=== PATIENT | male | born 1985 | race Hispanic/Latino ===

== ENCOUNTER 2024-01-16 20:41 | Emergency (ER) | payer BC, SELFPAY ==
[2024-01-16 20:42] VITALS: BP 184/100
--- NOTE | 2024-01-16 21:57 | ED.GENMED ---
History of Present Illness
General
Chief Complaint: Swelling
Source: patient
Exam Limitations: none
Time Seen by Provider: 01/16/24 21:36
History of Present Illness
History of Present Illness:
This is a 39 year old male that comes in with c/o bilateral leg swelling. States that this started about a month ago but recently he scrapped a scab and the liquid was clear that come out. States that his leg kept oozing. states that his right leg
is more swollen then the left. Denies any fever, chills, chest pain, SOB, abd pain, nausea, vomiting, diarrhea, headache, dizziness, urinary burning.
Past History
Past History
ED Past Medical History: GERD and Other (migraines, )
ED Past Surgical History: Appendectomy and Orthopedic (left leg)
Social History
Tobacco: Non-smoker
Alcohol: Occasional
Personal:
Living: with family
Employment: Employed
Review of Systems
Review of Systems
All Other Systems: ROS reviewed and negative except as documented in HPI and ROS
Constitutional: Reports no symptoms; Denies fever or chills
EENT: Reports no symptoms
Respiratory: Reports no symptoms; Denies cough or trouble breathing
Cardiac: Reports no symptoms; Denies chest pain
ABD/GI: Reports no symptoms; Denies abdominal pain, nausea, vomiting or diarrhea
: Reports no symptoms; Denies dysuria, frequency or urgency
Musculoskeletal: Reports no symptoms
Skin: Reports no symptoms
Neurological: Reports no symptoms; Denies dizzy or headache
Psychiatric: Reports no symptoms
Phy Exam
General Physical Exam
General Presentation: well appearing and no apparent distress
General age: appears stated age
General Skin: warm and dry
General Habitus: obese
General Mental: alert
General Hydration: appears well hydrated
ENT Exam
ENT Exam: TM's normal, pharynx normal and neck supple
Eye Exam
Eye Exam: EOMI
Cardiovascular Exam
Cardiovascular Exam: regular rate/rhythm and normal peripheral pulses
Pulmonary Exam
Pulmonary Exam: lungs clear, no respiratory distress, no rales, chest non tender, no crackles, no rhonchi, no wheezing and no cough
Gastrointestinal Exam
Gastrointestinal Exam: normal bowel sounds, non tender, soft, no organomegaly, no pulsatile mass, non distended and other (Obese)
Musculoskeletal Exam
Musculoskeletal Exam: full ROM and edema (Nonpitting lower leg edema)
Skin Exam
Skin Exam: normal color, warm/dry, no rash and no petechia
Psychiatric Exam
Psychiatric Exam: normal mood/affect
Course
Orders/Labs/Results
Orders:
Orders
01/16/24 21:46
CR Chest - 2 Views Urgent
Comment:
Reason For Exam: sob
Legs, Bilateral US [US Periph Venous LOWER Ext Jorge] Urgent
Comment:
Reason For Exam: sWELLING
01/16/24 21:56
CMP [Comprehensive Metabolic Panel] Urgent
Complete Blood Count/With Diff Urgent
NT-proBNP Urgent
Troponin I Urgent
Abnormal Lab Results
01/16/24
21:56
Glucose 143 H mg/dl
(70-99)
ALT 72 H U/L
(0-50)
01/16/24 21:56
01/16/24 21:56
Hyperglycemia, ALT elevation. Troponin <0.012, Pro-BNP <20.0
Vital Signs
Initial and Last Documented VS:
Initial Vital Signs
Temp Pulse Resp BP Pulse Ox
98 F 94 26 184/100 98
01/16/24 20:42 01/16/24 20:42 01/16/24 20:42 01/16/24 20:42 01/16/24 20:42
Last Documented Vital Signs
Temp Pulse Resp BP Pulse Ox
98 F 94 26 184/100 98
01/16/24 20:42 01/16/24 20:42 01/16/24 20:42 01/16/24 20:42 01/16/24 21:39
MDM/Problems Addressed
Differential Diagnosis Includes:
DVT, Dependent edema
MDM/Problems Addressed:
This is a 39 year old male that comes in with c/o bilateral leg swelling. states that the right is worse then then left and that this started about a month ago. However, he scratched a scab off and it drained liquid.
Will check labs and get US bilateral legs.
Back into see patient. Explained that his Ultrasound is negative for DVT in both legs. Will have patient follow up with the Family doctor for repeat labs as his blood sugar is elevated and he needs a fasting blood sugar to r/o Diabetes. Patient can
use Compression socks to help with the swelling. Patient to return with any concerns.
Chronic conditions affecting care:
NA
Acute Exacerbation and/or Progression of Chronic Illness:
NA
*Radiology
Radiology exam reviewed: radiology read reviewed (US- Normal, No evidence of deep venous thrombosis. )
*Pulse Oximetry
Patient hypoxic: no
*EKG
Interpreted by ED Provider?: NA
Rate: EKG- N/A
*Trucking Contractor Interpretation
Rate: Trucking Contractor- N/A
*Critical Care Note
Total Time (30-74mins, 75-104mins- exclusive of procedures): Not Applicable
ED Attending Note
-
Portions of this chart may have been created with voice recognition software.� Occasional wrong word or��sound alike� substitutions may have occurred due to the inherent limitations of voice recognition software.
Discharge Plan
Departure
Patient Disposition: Home (Routine Discharge)
Date of Disposition: 01/16/24
Time of Disposition: 23:28
Patient with high blood pressure during this ER visit?: Yes
Condition: Good
Covid-19: Not Applicable
Discharge Problem:
Dependent edema
Instructions: Dependent Edema (DC), BLOOD PRESSURE
Prescriptions:
No Action
No Current Medications
0
Referrals:
Hector Quick MD [Family Provider] - Follow up in 2-3 days
Activity Restrictions/Additional Instructions:
As discussed, your ultrasound shows that you are negative for any blood clots in either leg. Your blood work shows that you do not have to mush fluid on board. Please increase your water intake to 8-8oz glasses daily. Please get knee high
Compression stockings to help push the fluid back into the system. Elevate your legs when sitting around. Follow up with the family doctor in the next 2-3 days for recheck and for repeat blood work to check your blood sugar. IF YOU HAVE ANY OTHER
CONCERNS PLEASE RETURN TO THE EMERGENCY ROOM
Interventions
Interventions:
*Risk Screen - Suicide Last Done: 01/16/24 20:42
*General Assessment Last Done: 01/16/24 21:39
*Neglect/Abuse Screening Last Done: 01/16/24 20:42
ED- Fall Risk Assessment Last Done: 01/16/24 21:39
*ED COVID-19 Vaccine History Last Done: 01/16/24 21:39
ED- Cardiac Assessment Last Done: 01/16/24 21:39
ED- Pulmonary Assessment Last Done: 01/16/24 21:39
ED-Skin Assessment Last Done: 01/16/24 21:39
Discharge Date and Time
Print Language: [id number]
[2024-01-16 22:17] VITALS: BP 129/59
[2024-01-16 22:27] LABS: % Basophils 0.3 % (0-2); % Eosinophils 3.4 % (0-6); % Immature Granulocytes 0.3 % (0-0.5); % Lymphocytes 27.9 % (20.5-51.1); % Monocytes 7.2 % (1.7-9.3); % Neutrophils 60.9 % (42.2-75.2); Absolute Eosinophils 0.2 10^3/uL (0-0.7); Absolute Lymphocytes 1.9 10^3/uL (1.2-3.4); Absolute Monocytes 0.5 10^3/uL (0.1-0.6); Absolute Neutrophils 4.1 10^3/uL (1.4-6.5); Hemoglobin 13.5 g/dL (13.0-18.0); Mean Corp Hgb Conc. 34.6 g/dL (33.0-37.0); Mean Corpuscular Hgb 28.1 pg (27.0-31.0); Mean Corpuscular Volume 81.3 fL (80.0-94.0); Mean Platelet Volume 9.7 fL (7.4-10.4); Nucleated Red Blood Cells % 0 % (-); Platelet Count 207 10^3/uL (130-400); Red Cell Dist. Width 13.9 % (11.5-14.5); White Blood Cell Count 6.8 10^3/uL (4.8-10.8)
[2024-01-16 22:47] LABS: ALT (SGPT) 72 U/L (0-50); AST (SGOT) 51 U/L (17-59); Albumin 3.7 g/dl (3.5-5.0); Alkaline Phosphatase 77 U/L (38-126); Blood Urea Nitrogen 11 mg/dl (9-20); Calcium 8.7 mg/dl (8.4-10.2); Carbon Dioxide 27 mmol/L (22-30); Chloride 104 mmol/L (98-107); Glucose 143 mg/dl (70-99); Potassium 4.3 mmol/L (3.5-5.1); Sodium 142 mmol/L (135-145); Total Bilirubin 0.5 mg/dl (0.2-1.3); eGFR > 60.00
[2024-01-16 22:51] LABS: NT-proBNP < 20.0 pg/ml; Troponin I < 0.012 ng/ml
[2024-01-16 23:27] VITALS: BP 129/66
== END 2024-01-16 23:53 | disposition home or self-care (01) ==
LOC: EMR 20:41
PROVIDERS: Clinical Nurse Specialist Family Health; Emergency Medicine; EMERGENCY PHYSICIAN Student in an Organized Health Care Education/Training Program; FAMILY PHYSICIAN Family Medicine
DX: R60.0 Localized edema (principal); R03.0 Elevated blood-pressure reading, without diagnosis of hypertension
CPT/HCPCS: 99285; 71046; 80053; 83880; 84484; 85025; 93970